=== PATIENT | male | born 1940 | race Caucasian/White ===

== ENCOUNTER 2020-04-21 19:55 | Observation (INO) | payer MEDICARE ==
[2020-04-21 20:33] LABS: #Lymphocytes 1.2 thou/uL (1.20-3.40); #Monocytes 0.7 thou/uL (0.11-0.59); #Neutrophils 12.1 thou/uL (1.40-6.50); %Basophils 0.1 % (0.0-1.0); %Eosinophils 0.3 % (0.0-10.0); %Lymphocytes 8.5 % (21.0-51.0); %Monocytes 5.1 % (0.0-10.0); %Neutrophils 86.1 % (42.0-75.0); Hemoglobin 15.4 g/dL (14.0-18.0); Mean Corpuscular HGB CONC 34.5 g/dL (32.0-36.0); Mean Corpuscular Hemoglobin 29.9 pg (27.0-31.0); Mean Corpuscular Volume 86.6 fL (78.0-98.0); Mean Platelet Volume 6.7 fL (7.4-10.4); Platelet Count 182 thou/uL (130-400); RBC Distribution Width 13.8 % (11.5-14.5); Red Blood Cell (RBC) Count 5.15 mill/uL (4.70-6.10); White Blood Cell (WBC) Count 14.1 thou/uL (4.8-10.8)
[2020-04-21 20:40] LABS: INR-International Normal Ratio 2.7; Prothrombin Time 29.3 sec (12.0-14.7)
--- NOTE | 2020-04-21 20:40 | RAD ---
RIGHT HIP TWO VIEWS: 04/21/20 HISTORY: Hip injury. There are mild arthritic changes of the hip. There is no signs of fracture or dislocation . IMPRESSION: No acute injury. POS: OFF
[2020-04-21 20:41] LABS: PTT 54.7 sec (22.9-36.1)
--- NOTE | 2020-04-21 20:45 | RAD ---
PORTABLE CHEST: 04/21/20 HISTORY: Injury, hit by a gate. Chills and fever. Heart size within normal limits for portable technique. Mediastinal structures appear unremarkable. T he lungs are clear of infiltrates. No rib fractures. Postop changes of the right shoulder is seen. IMPRESSION: No active intrathoracic disease. POS: OFF
[2020-04-21] MEDS ORDERED: Acetaminophen 500 MG TAB ONE (20:49)
[2020-04-21 20:53] LABS: Anion Gap 16 mmol/L (10-20); BUN (Urea Nitrogen) 18 mg/dL (8.4-25.7); Calc. Creatinine Clearance 0 mL/min (70-130); Calcium 9.2 mg/dL (7.8-10.44); Carbon Dioxide 24 mmol/L (23-31); Chloride 102 mmol/L (98-107); Glucose 137 mg/dL (83-110); Potassium 4.2 mmol/L (3.5-5.1); Sodium 138 mmol/L (136-145)
--- NOTE | 2020-04-21 21:36 | CT ---
CT OF BRAIN PERFORMED WITHOUT CONTRAST ENHANCEMETN: 04/21/20 HISTORY: Head injury. The ventricular and cisternal system shows some generalized atrophy. There is no signs of intracerebr al hemorrhage or extra-axial fluid collections. Right frontal scalp hematoma is seen. Mastoid air richmond ls and visualized sinuses are clear. IMPRESSION: No acute intracranial abnormalities. POS: OFF
--- NOTE | 2020-04-21 21:41 | CT ---
CT OF FACIAL BONES PERFORMED WITHOUT CONTRAST ENHANCEMENT: 04/21/20 HISTORY: Facial trauma. A right frontal scalp hematoma is noted. There is no underlying fracture in this regio n. The nasal bone and zygomatic arches are intact. Pterygoid processes are intact. No air fluid level s within the sinuses. Mucosal change is seen in the ethmoid air cells and right maxillary sinus. No orbital or maxillary fractures. The mandible appears intact. Condyles are in normal position. IMPRESSION: No CT evidence of fracture or the facial bones. POS: OFF
[2020-04-21 22:28] LABS: Bacteria/HPF None Seen HPF (None Seen); Bilirubin Negative (Negative); Blood, Urine 1+ (Negative); Clarity Clear (Clear); Glucose, Urine (Dipstick) Normal (Negative); Ketone, Urine Negative (Negative); Leukocyte Negative Leu/uL (Negative); Nitrite Negative (Negative); Protein, Urine (Dipstick) Negative (Neg-Trace); RBC/HPF 0-3 HPF (0-3); Squamous Epithelial None Seen HPF (0-3); Urobilinogen Normal mg/dL (Less than 2); WBC/HPF 0-3 HPF (0-3)
[2020-04-21 23:07] LABS: SARS-CoV-2 NAA Rapid Test Not Detected (NotDetected)
[2020-04-21] MEDS ORDERED: Ondansetron ODT 4 MG TAB PO PRN (23:38)
[2020-04-21] MEDS ORDERED: Ondansetron PF 4 MG/2 ML Vial IVP PRN (23:38)
[2020-04-21] MEDS ORDERED: Dextrose 5% in Water 1,000 ML IV PRN (23:38)
[2020-04-21] MEDS ORDERED: Sodium Chloride 0.9% 1,000 ML IV SCH (23:38)
[2020-04-21] MEDS ORDERED: hydrALAZINE 20 MG/ML VIAL SLOW IVP PRN (23:38)
[2020-04-21] MEDS ORDERED: traMADol HCl 50 MG TAB PO PRN (23:38)
[2020-04-21] MEDS ORDERED: Cyclobenzaprine 10 MG TAB PO PRN (23:38)
[2020-04-21] MEDS ORDERED: Dextrose 50% Abboject 50 ML SYRINGE SLOW IVP PRN (23:38)
[2020-04-21] MEDS: Acetaminophen 500 MG TAB PO SCH (23:55)
--- NOTE | 2020-04-22 00:37 | HP ---
REQUESTING PHYSICIAN: Dr. Hicks. CONSULTATIONS: None. 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 He got hit by the gate initially in the forehead and then knocked him to the ground. The gate landed on his right thigh. He denies loss of consciousness, but he does take Coumadin. He was brought to the emergency department where he underwent evaluation and examination and was noted to have multiple contusions and a negative head CT, but his INR was 2.7, which per protocol requires observation admission. The patient was also noted to have a fever of 103.2. The patient denies any respiratory symptoms or difficulty urinating. He denies any recent illnesses or exposures. ALLERGIES: NONE. CURRENT MEDICATIONS: The patient reports he does not have his current medications, but he obviously takes Coumadin something for his blood pressure and Indocin for gout. PAST MEDICAL HISTORY: Hypertension, gout, pulmonary embolisms x2. PAST SURGICAL HISTORY: Right rotator cuff repair. SOCIAL HISTORY: The patient lives at home with family. He drinks maybe once a week. Denies drug use and has no smoking history. REVIEW OF SYSTEMS: A 10-point review of systems is negative except otherwise stated. PHYSICAL EXAMINATION: VITAL SIGNS: Blood pressure 155/80, heart rate 90, respirations 20, oxygen saturation is 98% on room air, temperature is 103.2. GENERAL: The patient is resting comfortably in bed. He is awake, alert, conversant, appropriate. [place] Coma Scale is 15. HEENT: The patient has contusion and ecchymosis noted to the right side of his forehead. Small abrasions are noted on his right cheek. Eyes, extraocular motions are intact. PERRLA bilaterally. Ears are atraumatic without discharge. Nose is atraumatic without discharge. Oropharynx is clear. NECK: Nontender. Trachea is midline with no JVD. CHEST: Clear to auscultation with good inspiratory and expiratory effort. HEART: Regular rate and rhythm. ABDOMEN: Soft, flat, nontender with active bowel sounds. EXTREMITIES: Neurovascularly intact x4. The patient has small contusion noted on his left forearm and his right anterior thigh. BACK: Atraumatic and nontender. LABORATORY FINDINGS: White blood cell count 14.1, hemoglobin 15.4, hematocrit 44.6, platelets 182. Sodium 138, potassium 4.2, chloride 102, CO2 of 24, BUN 18, creatinine 1.31, glucose 137, PT 29.3, INR 2.7, PTT 54.7. RADIOGRAPHIC REPORTS: CT of the brain without contrast shows no acute intracranial abnormalities. CT of the facial bones without contrast shows no CT evidence for fracture of the facial bones. AP chest x-ray shows no active intrathoracic disease. Views of the right femur show no fracture or dislocation. ASSESSMENT: 1. Status post being struck by farm animal and gate, while on Coumadin. 2. Multiple contusions and hematomas. 3. History of Coumadin use for pulmonary embolism x2 with an INR of 2.7. 4. Febrile illness. PLAN: Will be to admit the patient to the hospital. We are awaiting his COVID screen and flu screen for location. The patient had no loss of consciousness and will be able to be placed on a surgical or medical floor for serial exams every 2 hours with a repeat head CT in 8-12 hours per protocol, sooner as needed. The patient will also have gentle fluid hydration for his creatinine of 1.31. The evaluation, examination, laboratory, and radiographic findings were discussed with Dr. Tony after this dictation. Job ID: [id number]
[2020-04-22 00:44] VITALS: BMI 31.6
[2020-04-22] MEDS: Acetaminophen 500 MG TAB PO SCH ×2 (05:09→11:41)
[2020-04-22 05:32] LABS: #Eosinphils 0.2 thou/uL (0.0-0.7); #Lymphocytes 2.5 thou/uL (1.20-3.40); #Monocytes 0.8 thou/uL (0.11-0.59); #Neutrophils 6.3 thou/uL (1.40-6.50); %Basophils 0.2 % (0.0-1.0); %Eosinophils 2.6 % (0.0-10.0); %Lymphocytes 25.3 % (21.0-51.0); %Monocytes 8.1 % (0.0-10.0); %Neutrophils 63.8 % (42.0-75.0); Hemoglobin 13.3 g/dL (14.0-18.0); Mean Corpuscular HGB CONC 33.2 g/dL (32.0-36.0); Mean Corpuscular Hemoglobin 28.5 pg (27.0-31.0); Mean Corpuscular Volume 85.7 fL (78.0-98.0); Mean Platelet Volume 6.7 fL (7.4-10.4); Platelet Count 156 thou/uL (130-400); RBC Distribution Width 13.8 % (11.5-14.5); Red Blood Cell (RBC) Count 4.67 mill/uL (4.70-6.10); White Blood Cell (WBC) Count 9.8 thou/uL (4.8-10.8)
[2020-04-22 05:51] LABS: Anion Gap 13 mmol/L (10-20); BUN (Urea Nitrogen) 16 mg/dL (8.4-25.7); Calc. Creatinine Clearance 75 mL/min (70-130); Calcium 8.4 mg/dL (7.8-10.44); Carbon Dioxide 26 mmol/L (23-31); Chloride 105 mmol/L (98-107); Glucose 134 mg/dL (83-110); Potassium 3.6 mmol/L (3.5-5.1); Sodium 140 mmol/L (136-145)
[2020-04-22] MEDS ORDERED: Indomethacin 25 mg Capsule PO PRN (06:05)
--- NOTE | 2020-04-22 07:30 | RAD ---
Right knee 4 views HISTORY: Right knee injury. COMPARISON: 05/21/2009. FINDINGS: Mild joint space narrowing medial compartment. [id number] tricompartmental osteophyto sis. Subcortical cystic formation at the femoral condyles has progressed slightly. Prominent fluid distention of the suprapatellar bursa, also seen on the prior exam. No acute fracture, dislocation, or aggressive osseous erosions. 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 No acute abnormalities are demonstrated.
--- NOTE | 2020-04-22 07:43 | CT ---
PRELIMINARY REPORT/[facility]/EMERGENCY AFTER HOURS PROCEDURE: HEAD CT WITHOUT IV CONTRAST TECHNIQUE: Non-IV contrast enhanced axial CT images were obtained through the brain. History: Fall Comparison: 04/21/20 FINDINGS: Right frontal scalp soft tissue swelling noted. This appears relatively unchanged. The ventricles an d sulci are age appropriate. There is no acute intracranial hemorrhage, edema, mass effect or midline shift. No extra-axial collections or space-occupying lesions are seen. Patten-white differentia tion is normal. The calvarium is intact. Visualized paranasal sinuses are clear. IMPRESSION: No CT evidence of acute intracranial abnormality. ELECTRONICALLY SIGNED BY: Jeremy Forrest MD Apr 22, 2020 5:24:56 AM [employer] FINAL REPORT HEAD CT WITHOUT CONTRAST: HISTORY: Follow-up head CT. Fall. Patient is on Coumadin. COMPARISON: 04/21/2020. FINDINGS: Hemorrhage: No intraparenchymal hemorrhage or extra-axial hematoma. Brain parenchyma: Cortical patten-white matter differentiation is preserved. No mass effect or midline shift. Basilar cisterns are patent. Ventricular system: Ventricles and sulci are patent and symmetric. Calvarium: Intact. Scalp: Stable right frontal scalp hematoma. Sinuses and mastoid air cells: Adequate aeration. IMPRESSION: 1. This report is in agreement with initial report by [facility]. 2. No acute intracranial process. Transcribed Date/Time: 04/22/2020 7:58 AM
[2020-04-22] MEDS ORDERED: Lisinopril 10 MG TAB PO SCH (09:00)
[2020-04-22] MEDS ORDERED: Folic Acid 1 MG TAB PO SCH (09:00)
[2020-04-22] MEDS ORDERED: Famotidine 20 MG TAB PO SCH (09:00)
[2020-04-22 09:04] LABS: INR-International Normal Ratio 2.6; Prothrombin Time 28.8 sec (12.0-14.7)
[2020-04-22 09:05] LABS: PTT 62.8 sec (22.9-36.1)
[2020-04-22] MEDS ORDERED: Indomethacin 25 mg Capsule PO SCH (09:45)
[2020-04-22 12:00] VITALS: BP 136/72; TEMP 97.6
[2020-04-22] MEDS ORDERED: Atorvastatin Calcium 20 MG TAB PO SCH (21:00)
--- NOTE | 2020-04-23 13:06 | DIS ---
DATE OF ADMISSION: 04/21/2020 DATE OF DISCHARGE: 04/22/2020 ADMISSION DIAGNOSES: 1. Status post being struck by farm animal and gate while on Coumadin. 2. Multiple contusions and hematomas. 3. History of Coumadin use for pulmonary embolism x2 with admission INR of 2.7. 4. Fever of unknown origin. CONSULTATIONS: None. PROCEDURES: None. 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 He was brought to the emergency department, where he underwent evaluation and examination, was noted to have a negative head CT, but he was supratherapeutic on his Coumadin with an INR of 2.7. The patient was admitted overnight with a repeat head CT in the morning, which remained unremarkable. The patient's [place] Coma Scale was 15 for the duration of his stay here. It was noted on admission that he had a fever of 103.2. The patient's blood culture, urine, and respiratory evaluations were all unremarkable. The patient had negative flu and COVID test also. His white blood cell count at admission was 14 and the following day was normal at 9.8. At the time of discharge, the patient's pain was controlled, he was tolerating a diet, he was ambulating without assistance. He can follow up with the [facility] as needed and he was instructed to follow up with his primary care provider should his fever returned. Job ID: [id number]
== END 2020-04-22 14:35 | disposition home or self-care (01) ==
LOC: ERS 19:55 → SURG A 22:34
PROVIDERS: ADMIT Surgery; ATTEND Surgery
DX: S00.83XA Contusion of other part of head, initial encounter (principal); S00.81XA Abrasion of other part of head, initial encounter; S50.12XA Contusion of left forearm, initial encounter; S70.11XA Contusion of right thigh, initial encounter; I10 Essential (primary) hypertension; M10.9 Gout, unspecified; R50.9 Fever, unspecified; Z86.711 Personal history of pulmonary embolism; Z79.01 Long term (current) use of anticoagulants; Z79.899 Other long term (current) drug therapy; Z20.822 Contact with and (suspected) exposure to COVID-19; W20.8XXA Other cause of strike by thrown, projected or falling object, initial encounter; Y92.79 Other farm location as the place of occurrence of the external cause; Y99.0 Civilian activity done for income or pay
CPT/HCPCS: 0240U; 70450 ×2; 70486; 71045; 73552; 73564; 80048 ×2; 83605; 85025 ×2; 85610 ×2; 85730 ×2; 87040; 97116; 97139 ×3; 97535; 99285; G0378; 36415; 81003; 81015

== ENCOUNTER 2020-06-11 15:28 | Outpatient (CLI) | payer MEDICARE | END 2020-06-11 15:29 | disposition home or self-care (01) | LOC: BICULT 15:28 | PROVIDERS: ATTEND Family Medicine | DX: R60.0 Localized edema (principal) ==

== ENCOUNTER 2020-11-10 13:12 | Outpatient (CLI) | payer MEDICARE | END 2020-11-10 13:13 | disposition home or self-care (01) | LOC: CT 13:12 | PROVIDERS: ATTEND Family Medicine | DX: R41.82 Altered mental status, unspecified (principal) | CPT/HCPCS: 70450 ==

== ENCOUNTER 2020-11-10 13:31 | Outpatient (CLI) | payer MEDICARE | END 2020-11-10 13:32 | disposition home or self-care (01) | LOC: BICRAD 13:31 | PROVIDERS: ATTEND Family Medicine | DX: M25.551 Pain in right hip (principal); M16.11 Unilateral primary osteoarthritis, right hip; W19.XXXA Unspecified fall, initial encounter ==

== ENCOUNTER 2023-08-29 14:05 | Outpatient (CLI) | payer MEDICARE | END 2023-08-29 14:06 | disposition home or self-care (01) | LOC: BICRAD 14:05 | PROVIDERS: ATTEND Family Medicine | DX: M25.512 Pain in left shoulder (principal); R05.9 Cough, unspecified | CPT/HCPCS: 71046 ==